=== PATIENT | male | born 2000 | race Caucasian/White ===

== ENCOUNTER 2021-02-19 00:38 | Emergency (ER) | payer OTHER ==
[~2021-02-19] VITALS: Ht 188 cm; Wt 86.4 kg
[2021-02-19 00:49] VITALS: BP 149/70
[2021-02-19] MEDS ORDERED: CEPHALEXIN 500 MG CAP PO ONE (01:35)
[2021-02-19] MEDS ORDERED: NORCO 5/325MG TABLET (BULK FOR ED) PO ONE (01:35)
[2021-02-19] MEDS ORDERED: CEPH500C PO (01:47)
[2021-02-19] MEDS ORDERED: HYDR-3713 PO (01:47)
--- NOTE | 2021-02-19 01:54 | REPVR ---
PROCEDURE INFORMATION: Exam: XR Left Finger(s) Exam date and time: 02/19/2021 1:09 AM Age: 20 years old Clinical indication: Other: Trauma; Left third; Additional info: Trauma: Left third TECHNIQUE: Imaging protocol: XR Left fingers. Views: Minimum 2 views. COMPARISON: No relevant prior studies available. 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 Soft tissues: Extensive laceration of the 3rd distal finger. 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 Electronically signed by: Rivas Vega On 02/19/2021 01:53:34 AM
== END 2021-02-19 02:07 | disposition home or self-care (01) ==
LOC: M ED 00:38
DX: S62.633B Displaced fracture of distal phalanx of left middle finger, initial encounter for open fracture (principal); W23.0XXA Caught, crushed, jammed, or pinched between moving objects, initial encounter; Y92.89 Other specified places as the place of occurrence of the external cause; Y93.89 Activity, other specified; Y99.8 Other external cause status